=== PATIENT | female | born 1950 | race Caucasian/White ===

== ENCOUNTER 2017-03-27 09:15 | Inpatient (IN) | payer OTHER ==
[2017-03-21 16:45] LABS: HEMATOCRIT 39.8 % (36.0-48.0)
[2017-03-21 16:58] LABS: BUN (BLOOD UREA NITROGEN) 8 MG/DL (6-23); CALCIUM, SERUM 9.6 MG/DL (8.5-10.4); CHLORIDE, SERUM 99 MMOL/L (96-112); CO2 (CARBON DIOXIDE) 31 MMOL/L (24-34); CREATININE 0.54 MG/DL (0.55-1.02); GFR AFRICAN AMERICAN 112 ML/MIN (>=60); GFR NON AFRICAN AMERICAN 97 ML/MIN (>=60); GLUCOSE, SERUM 127 MG/DL (60-99); POTASSIUM, SERUM 4.1 MMOL/L (3.5-5.3); SODIUM, SERUM 137 MMOL/L (135-148)
[~2017-03-27] VITALS: Ht 157.5 cm; Wt 85.7 kg
--- NOTE | ~2017-03-27 | CN ---
Consultation Report [facility] [address] [place]. [address] NAME: PETEY SANTANA : 46 STATUS : ADM IN PAT#: [id number] AGE: 66 ADM/REG DATE : 03/27/17 MR#: [id number] REPORT SERV DATE: 03/27/17 DICTATED BY: AMINTA HERNANDEZ DATE: 03/27/17 REPORT STATUS : Draft TRANSCRIBED BY: MODGeorgina DATE: 03/27/17 CONSULTATION DATE OF CONSULTATION: 03/27/2017 REASON FOR CONSULT: Postoperative diabetes management. HISTORY OF PRESENT ILLNESS: The patient is a very pleasant 66-year-old female who had lumbar surgery done by Dr. Ma today. She is awake, alert, and oriented. She denies any chest pain. No shortness of breath. No abdominal pain. No fever. No rash. No headache. She is complaining of postsurgical back pain. PAST MEDICAL HISTORY: Her past medical history is known for diabetes for many years. She takes Lantus and also she takes Janumet, and her blood sugar is controlled at home. Her primary care physician is Dr. Wesley Caraballo who takes care of her diabetes. The patient has history of cardiac problems and she is a patient of Dr. Quintin Horn, program manager transportation and he is not listed on the chart. The patient has history of coronary artery bypass surgery 1996. She is status post anteroseptal myocardial infarction in 1995. She has history of obesity, hyperlipidemia, hypertension, diabetes type 2, history of dilated cardiomyopathy with mild to moderate reduction in global left ventricular systolic function. She has [place] Heart Association class 3 congestive heart failure secondary to dilated multi-infarct cardiomyopathy with mild to moderate reduction in global left ventricular function, and her last echocardiogram is also placed on the chart. It was done on 08/29/2016. She had severely reduced left ventricular systolic function with estimated ejection fraction of 30% to 35% with more focal distal anteroseptal and apical hypokinesis and paradoxical septal motion likely due to bundle branch block. The right ventricle is not well seen, moderate left atrial enlargement, mild mitral regurgitation, and aortic regurgitation. She also has history of pulmonary hypertension, history of obstructive sleep apnea, history of gastroesophageal reflux disease. PAST SURGICAL PROBLEMS: Include as I dictated above coronary artery bypass grafting. History of left carotid endarterectomy, history of hip surgeries, bursa sacs removed from both hips. FAMILY HISTORY: Positive for diabetes. SOCIAL HISTORY: No smoking. No alcohol. No recreational drug use. ALLERGIES: SHE IS ALLERGIC TO NAPROXEN. HOME MEDICATIONS: Include amitriptyline 20 mg daily, aspirin 325 mg daily, Lipitor 80 mg daily, biotin once a day, carvedilol 12.5 p.o. b.i.d., vitamin D 1000 units daily, Celexa 40 mg daily, Plavix 75 mg daily, coenzyme Q 100 mg a day, vitamin B12 500 mg a day, Lasix 40 mg a day, Lantus 30 units at bedtime, multivitamins daily, omeprazole 20 mg p.o. twice a day, Consultation Report [address] [place]. [address] NAME: PETEY SANTANA : 46 STATUS : ADM IN [facility]#: [id number] AGE: 66 ADM/REG DATE : 03/27/17 MR#: [id number] REPORT SERV DATE: 03/27/17 DICTATED BY: AMINTA HERNANDEZ DATE: 03/27/17 REPORT STATUS : Draft TRANSCRIBED BY: DANIEL DATE: 03/27/17 Altace 10 mg a day, spironolactone 12.5 mg daily, vitamin E 400 units daily, Janumet one tablet p.o. with breakfast and supper. REVIEW OF SYSTEMS: 14-point review of systems done and negative except what is stated in the history of present illness. PHYSICAL EXAMINATION: GENERAL: A well-nourished, well-developed female, not in acute distress, resting quietly. VITAL SIGNS: Blood pressure 113/68, heart rate 70, respiratory rate 18, and oxygen saturation 100% on 2 L nasal cannula. HEENT: Head atraumatic, normocephalic. Conjunctivae clear. Pupils are equal and reactive to light and accommodation. Extraocular muscles are intact. NECK: Supple. Trachea is midline. LYMPHATICS: No supraclavicular or cervical lymphadenopathy. LUNGS: Clear to auscultation bilaterally. Normal respiratory effort. CARDIOVASCULAR: Regular rate and rhythm. Point of maximal impulse not displaced. ABDOMEN: Soft, nontender, nondistended. Positive normoactive bowel sounds. EXTREMITIES: No clubbing, cyanosis, or edema. SKIN: Normal color and turgor. PSYCHIATRIC: Normal mood and affect. NEUROLOGIC: She is awake, alert, oriented in time, place, and person. Can follow commands. Can answer questions. LABORATORY RESULTS: Sodium 141, potassium 4.1, chloride 107, carbon dioxide 27, 0.44, blood sugar 151. Last hemoglobin A1c was 9.9 on 08/2016. White count 12.6, hemoglobin 11.6, hematocrit 35.1, and platelet count 205. ASSESSMENT AND PLAN: This is a very pleasant 66-year-old female, status post back surgery done by Dr. Ma. I am consulted for her diabetes management. Currently, her blood sugar is 160 and she has not started to eat yet. For her diabetes, we will check her hemoglobin A1c. We will put her on insulin sliding scale with NovoLog before meals and at bedtime. The patient is not eating yet her normal diet. We will restart her long-acting insulin tomorrow. My partner will restart her long-acting insulin. We will hold Janumet now. It will be restarted once the patient will have her normal diet. Regarding the patient's congestive heart failure, she has chronic systolic congestive heart failure, ischemic cardiomyopathy. The patient does not have any shortness of breath. She does not have any chest pain. Her blood pressure is in the normal range as well as her electrolytes. She already received 1500 mL of fluids during surgery and she is currently running IV fluids at 100 mL/h as per postsurgical orders. I am going to stop her intravenous fluids because patient is at risk to go into acute congestive heart failure with her ischemic cardiomyopathy, so the fluids will be discontinued. She currently does not have any shortness of breath. If she will have shortness of breath, she will need to be given Lasix, but right now, she looks good and her lungs are also sounding clear. Also, she Consultation Report [address] [place]. [address] NAME: PETEY SANTANA : 46 STATUS : ADM IN [facility]#: [id number] AGE: 66 ADM/REG DATE : 03/27/17 MR#: [id number] REPORT SERV DATE: 03/27/17 DICTATED BY: AMINTA HERNANDEZ DATE: 03/27/17 REPORT STATUS : Draft TRANSCRIBED BY: DANIEL DATE: 03/27/17 still needs a pain pump, the nurse asked if she can be at KVO. We can keep her at KVO at least and also we will recheck her electrolytes in the morning, and we will put her on electrolyte protocol. With a history of coronary artery disease, the patient does not have any chest pain and looks very good today. Her blood pressure is also normal. My partner will see this patient starting tomorrow morning. I also told nurse to avoid over sedation on this patient with the pain pump. MG/DANIEL inta Hernandez M.D. / [id number] CC: Nga Aguayo M.D.
--- NOTE | ~2017-03-27 | OP ---
Record Of Operation [facility] [address] [place]. [address] NAME: PETEY SANTANA : 46 STATUS : ADM IN PAT#: [id number] AGE: 66 ADM/REG DATE : 03/27/17 MR#: [id number] REPORT SERV DATE: 03/27/17 DICTATED BY: FRED BRUSH DATE: 03/27/17 REPORT STATUS : Draft TRANSCRIBED BY: MODL DATE: 03/27/17 DATE OF PROCEDURE: 03/27/2017 PREOPERATIVE DIAGNOSES: 1. Grade 1 spondylolisthesis, gross instability, L4-5. 2. Severe foraminal stenosis, right L4-5, with intractable L4 radiculopathy. POSTOPERATIVE DIAGNOSES: 1. Grade 1 spondylolisthesis, gross instability, L4-5. 2. Severe foraminal stenosis, right L4-5, with intractable L4 radiculopathy. PROCEDURE: 1. Microscopic and navigation-assisted surgery. 2. Right L4-5 hemilaminectomy, foraminotomy, facetectomy, transforaminal diskectomy, anterior interbody cage insertion, posterolateral interbody fusion, with local bone graft, allograft, and posterior percutaneous Voyager instrumentation, L4-5. DEPUTY DIRECTOR: Irving Pascal. ANESTHESIA: General. ESTIMATED BLOOD LOSS: 50 mL. INDICATION FOR SURGERY: Indication for surgery and risks have already been explained. They are listed in last office note as well history and physical. See that for detail. DESCRIPTION OF PROCEDURE: Antibiotic prophylaxis was given. Neurophysiology monitoring leads were inserted. The patient was brought to the operative suite. General anesthetic including endotracheal intubation was administered. Pollard catheter was placed with sterile technique. The patient placed prone on a Andrea spine frame. Bony prominences were carefully padded. Thoracolumbar spine scrubbed with Hibiclens solution. DuraPrep was painted. Sterile drapes were applied. A small stab wound was carried out over the left posterior superior iliac spine. A percutaneous pin with navigational frame attached was inserted in PSIS. Intraoperative CT scan with O-arm obtained, CT information used to register the navigational system. With navigational assistance, I identified the L4-5 level. On the right side just lateral to the facet joint, a 2.5 to 3 cm skin incision was carried out. A blunt navigated probe was placed through the fascia and muscle and docked over the remaining facet joint. The microscope was sterilely draped and used throughout the remainder of the procedure. With navigational assistance, I identified the top of the pedicle of L5 and inferior pedicle of L4. We used mostly a 3 mm alexis bur, but also used some 2 and 3 mm Kerrison rongeurs and carried out removal of the superior facet of L5 down to the top of the pedicle. I also debrided the very top of the pedicle itself to create more space below the nerve to allow Record Of Operation [facility] [address] [address] NAME: PETEY SANTANA : 46 STATUS : ADM IN PAT#: [id number] AGE: 66 ADM/REG DATE : 03/27/17 MR#: [id number] REPORT SERV DATE: 03/27/17 DICTATED BY: FRED BRUSH DATE: 03/27/17 REPORT STATUS : Draft TRANSCRIBED BY: DANIEL DATE: 03/27/17 proper implant insertion without impinging on the exiting L4 nerve. The lateral ligamentum flavum that remained was completely removed and remaining portion of the inferior articular process of L4 was also completely removed. I then carried out a transforaminal diskectomy with curettes, rongeurs, and disk stephanie and this was a huge amount of disk and in fact the entire disk space was almost going down, at least 80% of the disk space cleaned out from the left-sided approach only. After the diskectomy was completed, the wound was irrigated. Intradiscal trial was carried out. The cage was inserted through the midline against the anterior longitudinal ligament. Posterolateral interbody fusion with local bone graft, allograft, and a small dosage of extra-genetic of bone morphogenic protein was carried out. After everything was the completed the retractor was removed. I moved to the left side where I carried out another 3 cm skin incision just lateral to the facet joints. I then used a Voyager percutaneous pedicle tap and screw vacuum forming machine operator. I tapped the pedicles of L4, and 5 bilaterally. Polyaxial Voyager screws were inserted, after reducing the maria c into the tulip of the pedicle screw. The set screws were inserted and tightened with a torque wrench providing rigid stability. Screw extenders were removed. Intraoperative CT scan with O-arm repeated showing excellent position of all implants. The fascial openings were closed with a single interrupted #1 Vicryl suture. The subcutaneous tissue was closed with Vicryl sutures, 2-0 vertical mattress nylon suture was used for skin closure. Sterile dressings were applied. The patient returned to supine position, awakened, extubated, and taken to recovery room in satisfactory condition having tolerated the procedure well. Sponge, needle, and instrument counts were correct. No operative complications noted. WILI/DANIEL Fred Brush D.O. / [id number] CC: Fred Brush D.O.
--- NOTE | ~2017-03-27 | PREOPHP ---
PreOp History and Physical [facility] [address] [place]. [address] NAME: PETEY SANTANA : 46 STATUS : ADM IN PAT#: [id number] AGE: 66 ADM/REG DATE : 03/27/17 MR#: [id number] REPORT SERV DATE: 03/27/17 DICTATED BY: FRED BRUSH DATE: 03/27/17 REPORT STATUS : Draft TRANSCRIBED BY: MODL DATE: 03/27/17 CHIEF COMPLAINT: Back pain, right hip, and leg pain. HISTORY OF PRESENT ILLNESS: 66-year-old female, still very active, still working, but having severe right hip and leg pain. She has had symptoms for couple of years. She has been previously treated in an outside hospital by another physician with a left-sided L4-5 and L5 S1 hemilaminectomy and foraminotomy. She did get some improvement in the leg symptoms from this, but the pain has worsened, returned, and now she has back pain with leg pain. Plain x rays revealed a grade 1 spondylolisthesis at L4-5. She has gross instability with approximately 6 mm of translation with lateral flexion and extension. Pain is now 9/10 and her Oswestry Disability index is in the severe category. With all the above findings and now an MRI showing large impingement in the foraminal zone due to a combination of disk herniation and facet hypertrophy. The patient appears to be getting significant impingement on the exiting L4 nerve root. She is now brought to the Surgery for a right sided L4-5 hemilaminectomy, foraminotomy, facetectomy, transforaminal diskectomy, interbody cage insertion, posterolateral interbody fusion with local bone graft and allograft, and posterior percutaneous instrumentation. Prior to surgery, risks, benefits, alternatives, and expectations have been explained. Consent form signed. Also please note, because of the complexity of surgery, the need to identify correct level of surgery intraoperatively as well as desire to carry out the safest most precise dissection, I felt that intraoperative navigation was mandatory. PAST MEDICAL HISTORY: Diabetes mellitus type 2, hypercholesterolemia, hypertension, osteoarthritis, mild depression, gastroesophageal reflux disease, and sleep apnea. PAST SURGICAL HISTORY: She has had left and right hip arthroplasty. She has had coronary artery bypass surgery, tonsillectomy, adenoidectomy, varicose vein stripping in the legs, and the previous lumbar surgery as mentioned. CURRENT MEDICATIONS: Include amitriptyline, atorvastatin, citalopram, Contour test strips, Lasix, hydrochlorothiazide, hydrocodone, Janumet, losartan, metoprolol, Neurontin, Nitrostat, Prilosec, spironolactone, Zetia, and Toujeo. ALLERGIES: NAPROSYN CAUSES SEVERE NAUSEA. 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 Never smoked. Does not use any alcohol. She works at [employer]. FAMILY HISTORY: Her father had COPD, coronary artery disease, and diabetes. REVIEW OF SYSTEMS: She wears corrective lenses. Denies any current chest pain, pressure, or shortness of breath. She has had no recent change in bowel or bladder function. PHYSICAL EXAMINATION: VITAL SIGNS: She is 5 feet 2 inches, 220 pounds. BMI is 40.2. PreOp History and Physical [address] [address] NAME: PETEY SANTANA : 46 STATUS : ADM IN [facility]#: [id number] AGE: 66 ADM/REG DATE : 03/27/17 MR#: [id number] REPORT SERV DATE: 03/27/17 DICTATED BY: FRED BRUSH DATE: 03/27/17 REPORT STATUS : Draft TRANSCRIBED BY: DANIEL DATE: 03/27/17 GENERAL: She is alert, cooperative, and well-oriented. Ambulates independently. HEENT: Grossly normal. LUNGS: Clear to auscultation. HEART: Rate is regular and rhythm. ABDOMEN: Soft with good bowel sounds. No peritoneal signs are noted. MUSCULOSKELETAL: The spine has a previous midline incision, which is well-healed. She has a negative straight leg raising sign. Negative femoral nerve stretch test, but she does have a partial drop foot. The tibialis anterior is 4/5 on the right. All other muscle groups are 5/5. She does have some decreased sensation to light touch in a stocking glove distribution below the knees distally including the feet and ankles. She has decreased vibratory sensation over the feet. Pulses are weak in both lower extremities. There is no pain with moving hips, knees, or ankles. There are no adenopathy and no abnormal skin lesions found. IMPRESSION: 1. Grade 1 spondylolisthesis, L4-5. 2. Gross instability, L4-5. 3. Moderate to severe foraminal stenosis with L4 nerve impingement and radiculopathy. RECOMMENDATION: As listed above. /DANIEL Fred Brush D.O. / [id number] CC: Fred Brush D.O.
[~2017-03-27 09:15] MED LIST: ALTACE10 MG PO; AMIT10 PO; AMIT25 PO; ASA5GR PO; B12250T PO; BEN25 PO; BENTYL10 PO; CELEXA40 MG PO; CO Q-10100 MG PO; COREG12 PO; COZ50 PO; ESTRACE0.5 MG PO; FISH-EPA1000 MG PO; GLUCCHONDR PO; GLUCPH PO; HARD NAILS PO; HYDROCHLOROT12.5 MG PO; IBU800 PO; IMDUR30 PO; IMOD PO; JANUMET PO; JANUMET1 TA1 PO; L20 PO; L40 PO; LIPITOR40 PO; LIPITOR80 MG PO; LISINOPRIL40 MG PO; MEDROXYPR AC5 MG OR; MULTIPLE VIT PO; NEUR100 PO; NORV5 PO; PLAVIX PO; PRAND5 PO; PRILO PO; SPIRO25 PO; TOPXL50 PO; TOUJEO SC; VITAMIN B PO; VITAMIN C100 M1 PO; VITAMIN D1000 UNI1 PO; VITAMIN E 400 UNIT; VITE PO
[2017-03-27 14:39] LABS: HEMOGLOBIN 11.6 g/dL (12.0-16.0); MEAN CORPUSCULAR HEMOGLOB 31.3 pg (26.0-34.0); MEAN CORPUSCULAR VOLUME 94.6 fL (80-100); MEAN PLATELET VOLUME 9.3 fL (9.2-13.0); RBC DISTRIBUTION WIDTH 13.9 % (12.0-16.0); WHITE BLOOD CELLS 12.6 10/3/uL (4.5-10.5)
[2017-03-27 14:40] LABS: HEMATOCRIT 35.1 % (36.0-48.0); MANUAL DIFF YES %; PLATELET COUNT 205 10/3/uL (150-400); RED CELL COUNT 3.71 10/6/uL (4.0-5.6)
[2017-03-27 14:50] LABS: BUN (BLOOD UREA NITROGEN) 9 MG/DL (6-23); CHLORIDE, SERUM 107 MMOL/L (96-112); CO2 (CARBON DIOXIDE) 27 MMOL/L (24-34); CREATININE 0.44 MG/DL (0.55-1.02); GFR AFRICAN AMERICAN 120 ML/MIN (>=60); GFR NON AFRICAN AMERICAN 104 ML/MIN (>=60); GLUCOSE, SERUM 151 MG/DL (60-99); POTASSIUM, SERUM 4.1 MMOL/L (3.5-5.3); SODIUM, SERUM 141 MMOL/L (135-148)
[2017-03-27 14:51] LABS: CALCIUM, SERUM 8.5 MG/DL (8.5-10.4)
[2017-03-27 14:56] LABS: LYMPHOCYTES 54 %; MONOCYTES 4 %; NEUTROPHILS ABSOLUTE (CALC) 5.29 10/3/uL (2.02-8.40); PLATELET ESTIMATE ADQ (ADEQUATE); RBC MORPHOLOGY NORM (NORMAL); SEGMENTED NEUTROPHIL (0) 42 %; TOTAL NUCLEATED CELLS 100
[2017-03-28 04:49] LABS: BASOPHILS 0.1 %; BASOPHILS ABSOLUTE 0.01 10/3/uL (0.0-0.16); EOSINOPHILS 1.9 %; EOSINOPHILS ABSOLUTE 0.18 10/3/uL (0.0-0.53); HEMATOCRIT 35.9 % (36.0-48.0); HEMOGLOBIN 11.9 g/dL (12.0-16.0); IMMATURE GRANULOCYTES 0.3 %; IMMATURE GRANULOCYTES ABSOLUTE 0.03 10/3/uL (0.0-0.11); LYMPHOCYTES 21.9 %; MEAN CORPUS HGB CONC 33.1 g/dL (32.0-36.0); MEAN CORPUSCULAR HEMOGLOB 31.7 pg (26.0-34.0); MEAN CORPUSCULAR VOLUME 95.7 fL (80-100); MEAN PLATELET VOLUME 9.3 fL (9.2-13.0); MONOCYTES 10.1 %; MONOCYTES ABSOLUTE 0.97 10/3/uL (0.21-1.20); NEUTROPHILS 65.7 %; NEUTROPHILS ABSOLUTE 6.29 10/3/uL (2.02-8.40); PLATELET COUNT 165 10/3/uL (150-400); RBC DISTRIBUTION WIDTH 13.8 % (12.0-16.0); RED CELL COUNT 3.75 10/6/uL (4.0-5.6); WHITE BLOOD CELLS 9.6 10/3/uL (4.5-10.5)
[2017-03-28 04:54] LABS: MANUAL DIFF NO %
[2017-03-28 05:02] LABS: BUN (BLOOD UREA NITROGEN) 8 MG/DL (6-23); CALCIUM, SERUM 8.8 MG/DL (8.5-10.4); CHLORIDE, SERUM 104 MMOL/L (96-112); CO2 (CARBON DIOXIDE) 28 MMOL/L (24-34); CREATININE 0.43 MG/DL (0.55-1.02); GFR AFRICAN AMERICAN 121 ML/MIN (>=60); GFR NON AFRICAN AMERICAN 105 ML/MIN (>=60); GLUCOSE, SERUM 125 MG/DL (60-99); POTASSIUM, SERUM 4.1 MMOL/L (3.5-5.3); SODIUM, SERUM 139 MMOL/L (135-148)
[2017-03-29 05:20] LABS: BASOPHILS 0.1 %; BASOPHILS ABSOLUTE 0.01 10/3/uL (0.0-0.16); EOSINOPHILS 1.7 %; EOSINOPHILS ABSOLUTE 0.18 10/3/uL (0.0-0.53); HEMOGLOBIN 10.8 g/dL (12.0-16.0); IMMATURE GRANULOCYTES 0.2 %; IMMATURE GRANULOCYTES ABSOLUTE 0.02 10/3/uL (0.0-0.11); LYMPHOCYTES 19.3 %; LYMPHOCYTES ABSOLUTE 2.08 10/3/uL (0.67-4.30); MEAN CORPUS HGB CONC 33.4 g/dL (32.0-36.0); MEAN CORPUSCULAR HEMOGLOB 31.5 pg (26.0-34.0); MEAN CORPUSCULAR VOLUME 94.2 fL (80-100); MEAN PLATELET VOLUME 9.7 fL (9.2-13.0); MONOCYTES 10.3 %; MONOCYTES ABSOLUTE 1.11 10/3/uL (0.21-1.20); NEUTROPHILS 68.4 %; NEUTROPHILS ABSOLUTE 7.38 10/3/uL (2.02-8.40); PLATELET COUNT 160 10/3/uL (150-400); RBC DISTRIBUTION WIDTH 13.9 % (12.0-16.0); RED CELL COUNT 3.43 10/6/uL (4.0-5.6); WHITE BLOOD CELLS 10.8 10/3/uL (4.5-10.5)
[2017-03-29 05:21] LABS: HEMATOCRIT 32.3 % (36.0-48.0); MANUAL DIFF NO %
[2017-03-29 05:31] LABS: BUN (BLOOD UREA NITROGEN) 9 MG/DL (6-23); CALCIUM, SERUM 8.8 MG/DL (8.5-10.4); CHLORIDE, SERUM 100 MMOL/L (96-112); CO2 (CARBON DIOXIDE) 27 MMOL/L (24-34); CREATININE 0.41 MG/DL (0.55-1.02); GFR AFRICAN AMERICAN 123 ML/MIN (>=60); GFR NON AFRICAN AMERICAN 106 ML/MIN (>=60); GLUCOSE, SERUM 156 MG/DL (60-99); POTASSIUM, SERUM 3.7 MMOL/L (3.5-5.3); SODIUM, SERUM 136 MMOL/L (135-148)
[2017-03-29 12:54] LABS: TROPONIN I <0.02 NG/ML (<0.05)
[2017-03-30 04:49] LABS: BASOPHILS 0.1 %; BASOPHILS ABSOLUTE 0.01 10/3/uL (0.0-0.16); EOSINOPHILS 2.3 %; EOSINOPHILS ABSOLUTE 0.23 10/3/uL (0.0-0.53); HEMATOCRIT 29.4 % (36.0-48.0); HEMOGLOBIN 9.9 g/dL (12.0-16.0); IMMATURE GRANULOCYTES 0.3 %; IMMATURE GRANULOCYTES ABSOLUTE 0.03 10/3/uL (0.0-0.11); LYMPHOCYTES 22.5 %; LYMPHOCYTES ABSOLUTE 2.23 10/3/uL (0.67-4.30); MEAN CORPUS HGB CONC 33.7 g/dL (32.0-36.0); MEAN CORPUSCULAR HEMOGLOB 31.3 pg (26.0-34.0); MEAN PLATELET VOLUME 9.1 fL (9.2-13.0); MONOCYTES 9.7 %; MONOCYTES ABSOLUTE 0.96 10/3/uL (0.21-1.20); NEUTROPHILS 65.1 %; NEUTROPHILS ABSOLUTE 6.43 10/3/uL (2.02-8.40); PLATELET COUNT 168 10/3/uL (150-400); RBC DISTRIBUTION WIDTH 13.7 % (12.0-16.0); RED CELL COUNT 3.16 10/6/uL (4.0-5.6); WHITE BLOOD CELLS 9.9 10/3/uL (4.5-10.5)
[2017-03-30 04:53] LABS: MANUAL DIFF NO %
[2017-03-30 05:01] LABS: BUN (BLOOD UREA NITROGEN) 11 MG/DL (6-23); CALCIUM, SERUM 8.4 MG/DL (8.5-10.4); CHLORIDE, SERUM 102 MMOL/L (96-112); CO2 (CARBON DIOXIDE) 28 MMOL/L (24-34); CREATININE 0.41 MG/DL (0.55-1.02); GFR AFRICAN AMERICAN 123 ML/MIN (>=60); GFR NON AFRICAN AMERICAN 106 ML/MIN (>=60); POTASSIUM, SERUM 3.5 MMOL/L (3.5-5.3); SODIUM, SERUM 136 MMOL/L (135-148)
[2017-03-30 05:02] LABS: GLUCOSE, SERUM 124 MG/DL (60-99)
[2017-03-30] MEDS ORDERED: NORCO1 TA2 PO (12:28)
== END 2017-03-30 14:45 | disposition home or self-care (01) | DRG 460 ==
LOC: ENRESERVDT → ENRESERV → ENRESERVTM → 3SO 09:22 → SDC/OF 09:22 → PACU 14:24 → 3SO 15:48
PROVIDERS: Nurse Practitioner; Orthopaedic Surgery Orthopaedic Surgery of the Spine
PROC: 0SG00AJ Fusion of Lumbar Vertebral Joint with Interbody Fusion Device, Posterior Approach, Anterior Column, Open Approach (ICD-10-PCS; principal; 2017-03-27 11:15)
PROC: 0ST20ZZ Resection of Lumbar Vertebral Disc, Open Approach (ICD-10-PCS; 2017-03-27 11:15)
PROC: 4A11X4G Monitoring of Peripheral Nervous Electrical Activity, Intraoperative, External Approach (ICD-10-PCS; 2017-03-27 11:15)
DX: M51.16 Intervertebral disc disorders with radiculopathy, lumbar region (principal); I11.0 Hypertensive heart disease with heart failure; I50.22 Chronic systolic (congestive) heart failure; M48.06 Spinal stenosis, lumbar region; M43.16 Spondylolisthesis, lumbar region; E11.9 Type 2 diabetes mellitus without complications; F32.9 Major depressive disorder, single episode, unspecified; K21.9 Gastro-esophageal reflux disease without esophagitis; G47.33 Obstructive sleep apnea (adult) (pediatric); Z96.643 Presence of artificial hip joint, bilateral; E66.9 Obesity, unspecified; I25.10 Atherosclerotic heart disease of native coronary artery without angina pectoris; I95.81 Postprocedural hypotension; E78.5 Hyperlipidemia, unspecified; Z95.1 Presence of aortocoronary bypass graft; Z79.4 Long term (current) use of insulin; Z79.899 Other long term (current) drug therapy; I25.2 Old myocardial infarction; Z68.34 Body mass index [BMI] 34.0-34.9, adult
CPT/HCPCS: 36415; 80048; 82962; 83036; 83735; 84484; 85014; 85018; 85025; 86850; 86870; 86900; 86901; 86905; 86920; 86922; 87641; 88304; 88311; 93005; 97116-GP; 97162-GP; A9270-GY; C1713; J0690; J1644; J2250; J2710; J3010